=== PATIENT | female | born 1985 | race American Indian/Alaskan Native ===

== ENCOUNTER 2017-07-10 16:35 | Emergency (ER) | payer OTHER ==
[2017-07-10 16:51] VITALS: TEMP 98.7; O2SAT 100
[2017-07-10 17:54] LABS: BASO # 0.04 K/mm3 (0.0-2.0); BASO % 0.6 % (0.0-3.0); EOS # 0.2 (0.0-0.7); EOS % 2.2 % (1.5-5.0); GRAN # 4.32 (1.4-6.5); GRAN % 63.9 % (50.0-68.0); HEMOGLOBIN 13.2 g/dL (12.0-16.0); LYMPH # 1.8 (1.2-3.4); LYMPH % 26.1 % (22.0-35.0); MEAN CELL VOLUME 83.3 fl (80.0-105.0); MEAN CORPUSCULAR HEMOGLOBIN 27.3 pg (25.0-35.0); MEAN CORPUSCULAR HGB CONC 32.8 g/dl (31.0-37.0); MEAN PLATELET VOLUME 10.3 fl (7.0-11.0); MONO # 0.5 (0.1-0.6); MONO % 7.2 % (1.0-6.0); PLATELET COUNT 258 10^3/uL (120.0-450.0); RBC 4.84 10^6/uL (3.5-6.1); RED CELL DISTRIBUTION WIDTH 13.9 % (11.5-14.5); WHITE BLOOD COUNT 6.8 10^3/ul (4.5-11.0)
[2017-07-10 18:10] LABS: ALB/GLOB RATIO 1.4 (1.1-1.8); ALBUMIN 3.9 g/dL (3.0-4.8); ALT/SGPT 20 U/L (7-56); AST/SGOT 21 U/L (15-39); BLOOD UREA NITROGEN 13 mg/dL (7-21); CALCIUM 8.8 mg/dL (8.4-10.5); GFR AFRICAN-AMERICAN > 60; GFR NON-AFRICAN AMERICAN > 60
[2017-07-10 18:13] LABS: URINE APPEARANCE CLEAR (CLEAR); URINE BILIRUBIN NEGATIVE (NEGATIVE); URINE BLOOD TRACE-INTACT (NEGATIVE); URINE COLOR YELLOW (YELLOW); URINE GLUCOSE (UA) NEGATIVE (NEGATIVE); URINE LEUKOCYTE ESTERASE NEGATIVE Leu/uL (NEGATIVE); URINE NITRATE NEGATIVE (NEGATIVE); URINE PROTEIN TRACE mg/dL (<30 mg/dL); URINE UROBILINOGEN 0.2 E.U./dL (<1 E.U./dL)
[2017-07-10 18:31] LABS: URINE EPITHELIAL CELLS 0 - 2 /hpf (0-5); URINE RBC 0 - 2 /hpf (0-2); URINE WBC 0 - 2 /hpf (0-6)
--- NOTE | 2017-07-10 18:38 | ED PDOC ---
Arrival/HPI - General Chief Complaint: Anxiety Time Seen by Provider: 07/10/17 16:53 Historian: Patient - History of Present Illness Narrative History of Present Illness (Text): 07/10/17 18:39 32 yo F with pmh of asthma and anemia, presents with feeling anxious with heavy sensation to her head, but no actual headache, since last night after talking to her cousin on the phone. Pt states that they had a normal conversation and she does not know what triggered her anxiety. Denies any h/o anxiety in the past , dizziness, fever, chills, URI symptoms, N/V/D, CP, SOB, abdominal pain, urinary symptoms, depression, SI / HI. Pt is requesting for labs to be done. PMD none Past Medical History - Provider Review Nursing Documentation Reviewed: Yes - Cardiac Hx Cardiac Disorders: No - Pulmonary Hx Respiratory Disorders: Yes Hx Asthma: Yes - Neurological Hx Neurological Disorder: No - HEENT Hx HEENT Disorder: No - Renal Hx Renal Disorder: No - Endocrine/Metabolic Hx Endocrine Disorders: No - Hematological/Oncological Hx Blood Disorders: No - Integumentary Hx Dermatological Disorder: No - Musculoskeletal/Rheumatological Hx Musculoskeletal Disorders: No - Gastrointestinal Hx Gastrointestinal Disorders: No - Genitourinary/Gynecological Hx Genitourinary Disorders: No - Psychiatric Hx Psychophysiologic Disorder: No Hx Substance Use: No Family/Social History - Physician Review Nursing Documentation Reviewed: Yes Family/Social History: No Known Family HX Smoking Status: Never Smoked Hx Alcohol Use: No Hx Substance Use: No Allergies/Home Meds Allergies/Adverse Reactions: Allergies No Known Allergies Allergy (Verified 07/10/17 16:51) Home Medications: Home Meds Medication Instructions Recorded Confirmed No Known Home Med 07/10/17 07/10/17 Review of Systems - Review of Systems Constitutional: Normal. absent: Fatigue, Weight Change, Fevers Respiratory: Normal. absent: SOB, Cough, Sputum Cardiovascular: Normal. absent: Chest Pain, Palpitations, Edema Gastrointestinal: Normal. absent: Abdominal Pain, Vomiting, Appetite Changes Skin: Normal. absent: Rash, Pruritis, Skin Lesions Neurological: Normal. absent: Headache, Dizziness, Focal Weakness Psychiatric: Normal, Anxiety. absent: Depression, Suicidal Ideation Physical Exam - Physical Exam Narrative Physical Exam (Text): 07/10/17 18:45 GENERAL APPEARANCE: Patient is awake, alert, oriented x 3, in no acute distress. Patient is calm, cooperative, not anxious, sitting comfortably on the bed. SKIN: Warm, dry; (-) cyanosis. HEAD: (-) scalp swelling, (-) scalp tenderness. EYES: (-) conjunctival pallor, (-) scleral icterus, (-) nystagmus. ENMT: Mucous membranes moist. Airway patent: (-) stridor. NECK: (-) tenderness, (-) stiffness, (-) lymphadenopathy. CHEST AND RESPIRATORY: (-) rales, (-) rhonchi, (-) wheezes; breath sounds equal. ABDOMEN: Soft, (-) distention, (-) tenderness, (-) guarding. NEURO AND PSYCH: Mental status as above. Affect: normal. Memory: Intact. credit underwriter: Pupils equal and reactive; EOMI; (-) facial asymmetry; tongue and uvula midline. Strength and DTRs symmetric. Vital Signs Temp Pulse Resp BP Pulse Ox 07/10/17 19:06 88 16 108/72 100 07/10/17 16:47 98.7 F 90 15 105/75 100 Medical Decision Making ED Course and Treatment: 07/10/17 18:41 32 yo F with pmh of asthma and anemia, presents with feeling anxious with heavy sensation to her head, but no actual headache, since last night after talking to her cousin on the phone. Plan : - CBC - CMP - UA - Uhcg Uhcg (-). Labs reviewed and are wnl. Pt is notified of lab results. On re- evaluation, the patient is laying comfortably in no acute distress. At this time , pt has no other complaints. She denies any headache, dizziness, chest pain or shortness of breath. Pt advised to follow up with the clinic in 1-2 days without fail. Return to the emergency room at any time for any new or worsening symptoms. Patient states she fully agrees with and understands discharge instructions. States that she agrees with the plan and disposition. Verbalized and repeated discharge instructions and plan. I have given the patient opportunity to ask any additional questions. - Lab Interpretations Lab Results: 07/10/17 17:35 07/10/17 17:35 Lab Results 07/10/17 18:00: Urine Color Yellow, Urine Appearance Clear, Urine pH 6.0, Ur Specific Higginson 1.025, Urine Protein Trace H, Urine Glucose (UA) Negative, Urine Ketones Negative, Urine Blood Trace-intact H, Urine Nitrate Negative, Urine Bilirubin Negative, Urine Urobilinogen 0.2, Ur Leukocyte Esterase Negative , Urine RBC 0 - 2, Urine WBC 0 - 2, Ur Epithelial Cells 0 - 2 07/10/17 17:35: Sodium 139, Potassium 4.4, Chloride 102, Carbon Dioxide 28, Anion Gap 13, BUN 13, Creatinine 0.7, Est GFR ( Amer) > 60, Est GFR (Non- Af Amer) > 60, Random Glucose 110, Calcium 8.8, Total Bilirubin 0.4, AST 21, ALT 20, Alkaline Phosphatase 57, Total Protein 6.7, Albumin 3.9, Globulin 2.8, Albumin/Globulin Ratio 1.4 07/10/17 17:35: WBC 6.8, RBC 4.84, Hgb 13.2, Hct 40.3, MCV 83.3, MCH 27.3, MCHC 32.8, RDW 13.9, Plt Count 258, MPV 10.3, Gran % 63.9, Lymph % (Auto) 26.1, Alcorn % (Auto) 7.2 H, Eos % (Auto) 2.2, Baso % (Auto) 0.6, Gran # 4.32, Lymph # 1.8, Alcorn # 0.5, Eos # 0.2, Baso # 0.04 - PA / DELIVERY CLERK / Resident Statement MD/DO has reviewed & agrees with the documentation as recorded. Disposition/Present on Arrival - Present on Arrival Any Indicators Present on Arrival: No History of DVT/PE: No History of Uncontrolled Diabetes: No Urinary Catheter: No History of Decub. Ulcer: No History Surgical Site Infection Following: None - Disposition Have Diagnosis and Disposition been Completed?: Yes Diagnosis: Anxiety Disposition: HOME/ ROUTINE Disposition Time: 18:30 Patient Plan: Discharge Condition: STABLE Discharge Instructions (ExitCare): Anxiety (ED) Print Language: HAITIAN Additional Instructions: Thank you for letting us take care of you today. You were treated for anxiety. The emergency medical care you received today was directed at your acute symptoms. Return to the Emergency Department if your symptoms worsen, do not improve, or if you have any other problems. Please contact the clinic in 2 days for re-evaluation and follow up. Bring any paperwork you were given at discharge with you along with any medications you are taking to your follow up visit. Our treatment cannot replace ongoing medical care by a primary care provider (PCP) outside of the emergency department. Thank you for allowing the [facility] team to be part of your care today. Referrals: Katina Gibbs Rejamel, [Primary Care Provider] - [place] up with [place] [facility] [place] [facility] [place] - Follow up with primary Forms: [employer] (Norwegian), WORK NOTE
[2017-07-10 19:07] VITALS: BP 108/72; PULSE 88; RESP 16
== END 2017-07-10 19:06 | disposition home or self-care (01) ==
LOC: ED 16:35
DX: F41.9 Anxiety disorder, unspecified (principal)